=== PATIENT | female | born 1935 | race Two or more races ===

== ENCOUNTER 2019-07-17 17:12 | Inpatient (IN) | payer MEDICAID, MEDICARE ==
[~2019-07-17] VITALS: Ht 167.6 cm; Wt 49.9 kg
[2019-07-17] MEDS ORDERED: SODIUM CHLORIDE 0.9% 1,000 ML IV ONE ×2 (18:11→20:00)
[2019-07-17] MEDS ORDERED: ACETAMINOPHEN 500MG TABLET PO ONE (18:45)
[2019-07-17 19:42] LABS: HEMATOCRIT. 43.2 % (36.0-48.0); HEMOGLOBIN. 14.6 g/dL (12.0-16.0); MEAN CORPUSCULAR HEMOGLOBIN 32.5 pg (28.0-32.0); MEAN CORPUSCULAR VOLUME 96.2 fL (81.0-99.0); RED BLOOD CELL COUNT 4.49 mill/uL (4.2-5.4); RED CELL DISTRIBUTION WIDTH 12.8 % (11.6-14.6)
[2019-07-17] MEDS ORDERED: METRONIDAZOLE 500 MG PREMIX 100 ML IV ONE (19:45)
[2019-07-17] MEDS ORDERED: CEFTRIAXONE 1 G PREMIX 50 ML IV ONE (19:45)
[2019-07-17 19:48] LABS: CHLORIDE 95 mEq/L (98-107)
[2019-07-17 19:57] LABS: MEAN PLATELET VOLUME 7.7 fl (7.4-10.4); PLATELET 136 x1000/uL (130-400)
[2019-07-17 19:59] LABS: PLATELET ESTIMATE NORMAL
[2019-07-17 20:50] LABS: INR 1.3; PROTHROMBIN TIME 13.6 sec (9.6-11.0)
[2019-07-17 20:57] LABS: CLARITY URINE CLOUDY (CLEAR); COLOR URINE ORANGE (YELLOW); KETONES URINE NEGATIVE (NEGATIVE); LEUKOCYTE ESTERASE URINE 2+ (NEGATIVE); NITRITE URINE NEGATIVE (NEGATIVE); OCCULT BLOOD URINE 2+ (NEGATIVE); PROTEIN URINE 2+ (NEGATIVE); SPECIFIC GRAVITY URINE 1.014 (1.005-1.030)
[2019-07-17] MEDS ORDERED: MAGNESIUM/ALUMINUM HYDROXIDE/SIMETHICONE 30ML UDC PO PRN (23:00)
[2019-07-17] MEDS ORDERED: IPRATROPIUM/ALBUTEROL 0.5-3(2.5)MG/3ML NEB NEB PRN (23:00)
[2019-07-17] MEDS ORDERED: KETOROLAC 30MG/ML VIAL IV ONE (23:00)
[2019-07-17] MEDS ORDERED: CLONIDINE 0.1MG TABLET PO PRN (23:00)
[2019-07-17] MEDS ORDERED: HYDROCODONE/ACETAMINOPHEN 5/325MG TABLET PO PRN (23:00)
[2019-07-17] MEDS ORDERED: ACETAMINOPHEN 325MG TABLET PO PRN (23:00)
[2019-07-17] MEDS ORDERED: ONDANSETRON HCL 4MG/2ML INJ IV PRN (23:00)
[2019-07-17] MEDS ORDERED: DOCUSATE SODIUM 100MG CAPSULE PO PRN (23:00)
[2019-07-17 23:06] VITALS: BP 140/51
[2019-07-18] MEDS: SODIUM CHLORIDE 0.9% 1,000 ML IV SCH ×2 (00:02→16:02)
[2019-07-18 02:18] LABS: HEPATITIS B SURFACE ANTIGEN NEGATIVE
[2019-07-18 02:47] LABS: HEPATITIS A AB IGM NEGATIVE (NEGATIVE)
[2019-07-18] MEDS: METRONIDAZOLE 500 MG PREMIX 100 ML IV SCH ×3 (06:28→22:32)
[2019-07-18 06:46] LABS: HEMATOCRIT. 38.3 % (36.0-48.0); HEMOGLOBIN. 13.4 g/dL (12.0-16.0); MEAN CORPUSCULAR HEMOGLOBIN 33.5 pg (28.0-32.0); MEAN PLATELET VOLUME 7.7 fl (7.4-10.4); PLATELET 106 x1000/uL (130-400); RED BLOOD CELL COUNT 3.99 mill/uL (4.2-5.4); RED CELL DISTRIBUTION WIDTH 12.6 % (11.6-14.6)
[2019-07-18 07:05] LABS: CHLORIDE 102 mEq/L (98-107)
[2019-07-18 07:20] LABS: CREATINE KINASE 39 IU/L (26-192); LDL CHOLESTEROL 74 mg/dL (5-100)
[2019-07-18 07:21] LABS: HDL CHOLESTEROL 58 mg/dL (40-59)
[2019-07-18 07:25] LABS: CREATINE KINASE MB FRACTION 2.1 ng/mL (0.5-3.6)
[2019-07-18 08:00] VITALS: BP 144/48
[2019-07-18] MEDS ORDERED: HEPARIN 5000 UNITS/ML VIAL SUBCUT SCH (09:00)
[2019-07-18] MEDS ORDERED: POTASSIUM CHLORIDE 20MEQ TABLET SR PO NR (09:30)
[2019-07-18 12:00] VITALS: BP 113/60
[2019-07-18 12:54] LABS: PLATELET ESTIMATE DECREASED
[2019-07-18 15:56] LABS: CREATINE KINASE 46 IU/L (26-192)
[2019-07-18 15:58] LABS: CREATINE KINASE MB FRACTION 1.5 ng/mL (0.5-3.6)
[2019-07-18 16:00] VITALS: BP 151/56
[2019-07-18 20:00] VITALS: BP 147/62
[2019-07-18] MEDS ORDERED: CEFTRIAXONE 1 G PREMIX 50 ML IV SCH ×2 (21:00→22:00)
[2019-07-19] VITALS (7 sets, daily range): BP systolic 107–158; BP diastolic 54–65
[2019-07-19] MEDS: METRONIDAZOLE 500 MG PREMIX 100 ML IV SCH ×3 (05:09→22:00)
[2019-07-19] MEDS: SODIUM CHLORIDE 0.9% 1,000 ML IV SCH ×2 (07:18→22:42)
[2019-07-19] MEDS ORDERED: POTASSIUM CHLORIDE INJ 40 MEQ in DEXT 5% WATER 500 ML IV NR (11:00)
[2019-07-19] MEDS ORDERED: IOHEXOL-300 50 ML BOTTLE IV ONE (13:14)
[2019-07-19] MEDS ORDERED: LIDOCAINE HCL 1% 20ML VIAL (Pyxis) INJ ONE (13:15)
[2019-07-19] MEDS ORDERED: SODIUM BICARBONATE 4% (2.4MEQ) 5ML VIAL IV ONE (13:16)
[2019-07-19] MEDS ORDERED: FENTANYL CITRATE/PF 50MCG/ML 2ML VIAL ONE (13:45)
[2019-07-19] MEDS: CEFTRIAXONE 1,000 MG in DEXTROSE 5% WATER 50 ML IV SCH (22:00)
[2019-07-20] VITALS: BP 90/40
[2019-07-20 04:00] VITALS: BP 114/45
[2019-07-20] MEDS: METRONIDAZOLE 500 MG PREMIX 100 ML IV SCH ×3 (04:20→22:55)
[2019-07-20 06:23] LABS: HEMATOCRIT. 36.6 % (36.0-48.0); MEAN CORPUSCULAR HEMOGLOBIN 33.7 pg (28.0-32.0); MEAN PLATELET VOLUME 7.9 fl (7.4-10.4); PLATELET 133 x1000/uL (130-400); RED BLOOD CELL COUNT 3.85 mill/uL (4.2-5.4); RED CELL DISTRIBUTION WIDTH 12.6 % (11.6-14.6)
[2019-07-20 06:46] LABS: CHLORIDE 104 mEq/L (98-107)
[2019-07-20 08:00] VITALS: BP 88/33
[2019-07-20 12:00] VITALS: BP 109/36
[2019-07-20] MEDS ORDERED: SULF1TAB48 MT (13:04)
[2019-07-20] MEDS ORDERED: METR500T MT (13:04)
[2019-07-20 13:32] LABS: PLATELET ESTIMATE NORMAL
[2019-07-20] MEDS: SODIUM CHLORIDE 0.9% 1,000 ML IV SCH (14:42)
[2019-07-20 16:00] VITALS: BP 108/46
[2019-07-20 20:00] VITALS: BP 136/62
[2019-07-20] MEDS: CEFTRIAXONE 1,000 MG in DEXTROSE 5% WATER 50 ML IV SCH (22:55)
[2019-07-21 00:30] VITALS: BP 111/55
[2019-07-21 04:29] VITALS: BP 136/54
[2019-07-21] MEDS: SODIUM CHLORIDE 0.9% 1,000 ML IV SCH ×2 (04:53→20:54)
[2019-07-21] MEDS: METRONIDAZOLE 500 MG PREMIX 100 ML IV SCH ×3 (05:15→22:00)
[2019-07-21 08:00] VITALS: BP 140/50
[2019-07-21] MEDS ORDERED: POTASSIUM CHLORIDE 20MEQ/PACKET PO NR ×2 (11:30→21:00)
[2019-07-21 12:00] VITALS: BP 140/41
[2019-07-21 16:00] VITALS: BP 142/44
[2019-07-21] MEDS: CEFTRIAXONE 1,000 MG in DEXTROSE 5% WATER 50 ML IV SCH (22:00)
[2019-07-22] VITALS: BP 153/54
[2019-07-22 04:00] VITALS: BP 133/67
[2019-07-22] MEDS ORDERED: METRONIDAZOLE 500MG TABLET PO SCH (06:00)
[2019-07-22 06:27] LABS: BASOPHILS % 0.3 % (0.0-2.0); EOSINOPHILS % 1.5 % (0.0-5.0); HEMATOCRIT. 40.1 % (36.0-48.0); HEMOGLOBIN. 14.1 g/dL (12.0-16.0); LYMPHOCYTES % 13.1 % (20.0-50.0); MEAN CORPUSCULAR HEMOGLOBIN 33.1 pg (28.0-32.0); MEAN CORPUSCULAR VOLUME 94.1 fL (81.0-99.0); MEAN PLATELET VOLUME 7.6 fl (7.4-10.4); NEUTROPHILS % 75.1 % (40.0-76.0); PLATELET 111 x1000/uL (130-400); RED BLOOD CELL COUNT 4.27 mill/uL (4.2-5.4); RED CELL DISTRIBUTION WIDTH 12.6 % (11.6-14.6)
[2019-07-22 07:08] LABS: CHLORIDE 106 mEq/L (98-107)
[2019-07-22 08:00] VITALS: BP 111/63
[2019-07-22 12:00] VITALS: BP 133/65
[2019-07-22 16:00] VITALS: BP 141/66
== END 2019-07-22 16:16 | disposition home or self-care (01) ==
LOC: ER 17:12 → 6EST 18:40 → ENRESERV 20:28 → CANRESERV 20:28 → ENRESERV 22:09
PROVIDERS: ADMIT Internal Medicine; ATTEND Internal Medicine
PROC: 0F9430Z Drainage of Gallbladder with Drainage Device, Percutaneous Approach (ICD-10-PCS; principal; 2019-07-19)
DX: K80.00 Calculus of gallbladder with acute cholecystitis without obstruction (principal); R65.11 Systemic inflammatory response syndrome (SIRS) of non-infectious origin with acute organ dysfunction; E87.8 Other disorders of electrolyte and fluid balance, not elsewhere classified; K74.60 Unspecified cirrhosis of liver; N39.0 Urinary tract infection, site not specified; R74.0 Nonspecific elevation of levels of transaminase and lactic acid dehydrogenase [LDH]; R54 Age-related physical debility; Z79.899 Other long term (current) drug therapy; Z90.49 Acquired absence of other specified parts of digestive tract; E87.1 Hypo-osmolality and hyponatremia; E44.1 Mild protein-calorie malnutrition
CPT/HCPCS: 36415; 47490; 74176; 74181; 76705; 78227; 80048; 80053; 80061; 80076; 81003; 82550; 82553; 83735; 84132; 84443; 84484; 85025; 86705; 86709; 86803; 87340; 93005; 99285; A9537; C1729; C1769; J0696; J1644; J3010; J3480; J3490; J7030; J7060; Q9967

== ENCOUNTER 2019-08-11 09:49 | Emergency (ER) | payer MEDICAID ==
[~2019-08-11] VITALS: Ht 144.8 cm; Wt 36.0 kg
[~2019-08-11 09:49] MED LIST: METR500T MT; SULF1TAB48 MT
[2019-08-11 12:50] VITALS: BP 164/67
== END 2019-08-11 13:00 | disposition home or self-care (01) ==
LOC: ER 09:49
DX: K91.5 Postcholecystectomy syndrome (principal); Z79.899 Other long term (current) drug therapy
CPT/HCPCS: 99281

== ENCOUNTER 2019-09-10 11:00 | Emergency (ER) | payer MEDICAID ==
[~2019-09-10] VITALS: Ht 147.3 cm; Wt 43.0 kg
[2019-09-10 13:38] VITALS: BP 113/53
== END 2019-09-10 15:00 | disposition home or self-care (01) ==
LOC: ER 11:16
DX: K94.23 Gastrostomy malfunction (principal); Z87.19 Personal history of other diseases of the digestive system
CPT/HCPCS: 99281

== ENCOUNTER 2019-09-13 10:41 | Emergency (ER) | payer MEDICAID ==
[~2019-09-13] VITALS: Ht 147.3 cm; Wt 45.0 kg
[2019-09-13 12:55] LABS: BASOPHILS % 0.6 % (0.0-2.0); CHLORIDE 104 mEq/L (98-107); EOSINOPHILS % 2.2 % (0.0-5.0); HEMATOCRIT. 37.5 % (36.0-48.0); LYMPHOCYTES % 20.6 % (20.0-50.0); MEAN CORPUSCULAR HEMOGLOBIN 33.2 pg (28.0-32.0); MEAN CORPUSCULAR VOLUME 96.2 fL (81.0-99.0); MEAN PLATELET VOLUME 7.6 fl (7.4-10.4); MONOCYTES % 5.4 % (2.0-8.0); NEUTROPHILS % 71.2 % (40.0-76.0); PLATELET 109 x1000/uL (130-400); RED CELL DISTRIBUTION WIDTH 13.9 % (11.6-14.6)
[2019-09-13 13:06] LABS: INR 1.2; PROTHROMBIN TIME 12.2 sec (9.6-11.0)
[2019-09-13 17:04] VITALS: BP 120/65
== END 2019-09-13 17:06 | disposition home or self-care (01) ==
LOC: ER 10:41 → EDBEDREQTM 13:00 → CANBEDREQ 16:10 → ER 17:06
DX: T85.9XXA Unspecified complication of internal prosthetic device, implant and graft, initial encounter (principal); Z90.49 Acquired absence of other specified parts of digestive tract; Z87.81 Personal history of (healed) traumatic fracture; Y83.8 Other surgical procedures as the cause of abnormal reaction of the patient, or of later complication, without mention of misadventure at the time of the procedure; Y92.018 Other place in single-family (private) house as the place of occurrence of the external cause
CPT/HCPCS: 36415; 71045; 76705; 80053; 83605; 84484; 85025; 93005; 99285

== ENCOUNTER 2019-10-07 12:26 | Inpatient (IN) | payer MEDICAID ==
[~2019-10-07] VITALS: Ht 141 cm; Wt 49.6 kg
[2019-10-07 14:36] LABS: BASOPHILS % 0.3 % (0.0-2.0); HEMATOCRIT. 39.7 % (36.0-48.0); HEMOGLOBIN. 13.6 g/dL (12.0-16.0); LYMPHOCYTES % 16.8 % (20.0-50.0); MEAN CORPUSCULAR HEMOGLOBIN 32.6 pg (28.0-32.0); MEAN CORPUSCULAR VOLUME 95.3 fL (81.0-99.0); MEAN PLATELET VOLUME 7.5 fl (7.4-10.4); MONOCYTES % 8.7 % (2.0-8.0); NEUTROPHILS % 74.2 % (40.0-76.0); PLATELET 92 x1000/uL (130-400); RED BLOOD CELL COUNT 4.17 mill/uL (4.2-5.4); RED CELL DISTRIBUTION WIDTH 13.7 % (11.6-14.6)
[2019-10-07 14:46] LABS: CHLORIDE 100 mEq/L (98-107)
[2019-10-07 15:26] LABS: INR 1.1; PROTHROMBIN TIME 11.5 sec (9.6-11.0)
[2019-10-07] MEDS ORDERED: ENOXAPARIN 40MG/0.4ML SYR SUBCUT SCH (16:30)
[2019-10-07] MEDS ORDERED: ONDANSETRON HCL 4MG/2ML INJ IV PRN (16:30)
[2019-10-07] MEDS ORDERED: CLONIDINE 0.1MG TABLET PO PRN (16:30)
[2019-10-07] MEDS ORDERED: ALBUTEROL 6.7GM HFA INHALER ORI PRN (16:30)
[2019-10-07] MEDS ORDERED: DIPHENHYDRAMINE 50MG/ML VIAL IV PRN (16:30)
[2019-10-07 16:52] LABS: CLARITY URINE CLOUDY (CLEAR); COLOR URINE YELLOW (YELLOW); KETONES URINE NEGATIVE (NEGATIVE); LEUKOCYTE ESTERASE URINE 3+ (NEGATIVE); NITRITE URINE POSITIVE (NEGATIVE); OCCULT BLOOD URINE TRACE (NEGATIVE); PH URINE 6.5 (4.5-8.0); PROTEIN URINE NEGATIVE (NEGATIVE); SPECIFIC GRAVITY URINE 1.011 (1.005-1.030)
[2019-10-07 17:13] LABS: C REACTIVE PROTEIN CARDIAC 9.3 mg/L (0.00-3.00); PHOSPHORUS 3.2 mg/dL (2.5-4.9)
[2019-10-07 19:09] LABS: BG BASE EXCESS 0.7 mmol/L (-2.0-2.0); BG CARBOXYHEMOGLOBIN 0.2 % (0.5-1.5); BG DEOXYHEMOGLOBIN 2.4 % (0.0-5.0); BG FRACTION INSPIRED OXYGEN 28; BG HCO3 ACT 24.4 mmol/L (22.0-26.0); BG METHEMOGLOBIN 0.3 % (0.0-1.5); BG OXYGEN SATURATION 97.6 % (92.0-98.5); BG OXYHEMOGLOBIN 97.1 % (94.0-97.0); BG PCO2 36.3 mmHg (35.0-45.0); BG PH 7.445 (7.350-7.450); BG SAMPLE SITE RIGHT BRACHIAL; BG TOTAL HEMOGLOBIN 14.2 g/dL (12.0-18.0); BG VENT MODE NASAL CANNULA
[2019-10-07] MEDS ORDERED: CEFTRIAXONE 1 G PREMIX 50 ML IV ONE (19:30)
[2019-10-07 23:00] VITALS: BP 146/63
[2019-10-08] VITALS: BP 146/63
[2019-10-08] MEDS ORDERED: DEXTROSE 50% WATER 50ML SYRINGE IV PRN (01:00)
[2019-10-08 04:00] VITALS: BP 155/89
[2019-10-08 06:30] LABS: BASOPHILS % 0.3 % (0.0-2.0); EOSINOPHILS % 0.2 % (0.0-5.0); HEMATOCRIT. 38.8 % (36.0-48.0); HEMOGLOBIN. 13.2 g/dL (12.0-16.0); LYMPHOCYTES % 21.7 % (20.0-50.0); MEAN CORPUSCULAR HEMOGLOBIN 32.2 pg (28.0-32.0); MEAN CORPUSCULAR VOLUME 94.5 fL (81.0-99.0); MEAN PLATELET VOLUME 7.5 fl (7.4-10.4); MONOCYTES % 7.7 % (2.0-8.0); NEUTROPHILS % 70.1 % (40.0-76.0); PLATELET 86 x1000/uL (130-400); RED BLOOD CELL COUNT 4.11 mill/uL (4.2-5.4); RED CELL DISTRIBUTION WIDTH 13.2 % (11.6-14.6)
[2019-10-08] MEDS: BLOOD SUGAR DIAGNOSTIC STRIP TEST SCH ×4 (06:37→21:07)
[2019-10-08 06:49] LABS: CHLORIDE 102 mEq/L (98-107)
[2019-10-08 07:11] LABS: LDL CHOLESTEROL 97 mg/dL (5-100)
[2019-10-08 07:13] LABS: HDL CHOLESTEROL 44 mg/dL (40-59)
[2019-10-08 08:00] VITALS: BP 107/54
[2019-10-08] MEDS: INSULIN LISPRO 100 UNITS/ML SUBCUT SCH ×4 (08:10→21:00)
[2019-10-08] MEDS ORDERED: ENOXAPARIN 30MG/0.3ML SYR SUBCUT SCH (09:00)
[2019-10-08 09:20] LABS: BG BASE EXCESS -1.7 mmol/L (-2.0-2.0); BG CARBOXYHEMOGLOBIN 0.3 % (0.5-1.5); BG DEOXYHEMOGLOBIN 2.2 % (0.0-5.0); BG FRACTION INSPIRED OXYGEN 21; BG HCO3 ACT 20.7 mmol/L (22.0-26.0); BG OXYGEN SATURATION 97.8 % (92.0-98.5); BG OXYHEMOGLOBIN 97.5 % (94.0-97.0); BG PCO2 29.3 mmHg (35.0-45.0); BG PH 7.468 (7.350-7.450); BG PO2 96.8 mmHg (75.0-100.0); BG SAMPLE SITE RIGHT RADIAL; BG VENT MODE ROOM AIR
[2019-10-08 12:00] VITALS: BP 146/81
[2019-10-08] MEDS: AZITHROMYCIN 500 MG in DEXT 5% WATER 250 ML IV SCH (13:54)
[2019-10-08 16:00] VITALS: BP 99/61
[2019-10-08 20:00] VITALS: BP 121/48
[2019-10-08] MEDS: CEFTRIAXONE 1,000 MG in DEXTROSE 5% WATER 50 ML IV SCH (20:49)
[2019-10-09] VITALS: BP 123/52
[2019-10-09 04:00] VITALS: BP 119/53
[2019-10-09] MEDS: INSULIN LISPRO 100 UNITS/ML SUBCUT SCH ×4 (07:32→21:30)
[2019-10-09] MEDS: BLOOD SUGAR DIAGNOSTIC STRIP TEST SCH ×4 (07:33→20:43)
[2019-10-09 09:41] VITALS: BP 125/55
[2019-10-09] MEDS: AZITHROMYCIN 500 MG in DEXT 5% WATER 250 ML IV SCH (11:31)
[2019-10-09 12:35] VITALS: BP 122/59
[2019-10-09] MEDS: NYSTATIN POWDER 15GM TOP SCH ×2 (14:13→22:21)
[2019-10-09 16:54] VITALS: BP 128/63
[2019-10-09] MEDS: ALBUTEROL 6.7GM HFA INHALER ORI SCH (17:12)
[2019-10-09 20:00] VITALS: BP 127/58
[2019-10-09] MEDS: CEFTRIAXONE 1,000 MG in DEXTROSE 5% WATER 50 ML IV SCH (20:47)
[2019-10-09] MEDS: CEFEPIME 1,000 MG in DEXTROSE 5% WATER 50 ML IV SCH (22:21)
[2019-10-10] VITALS: BP 122/65
[2019-10-10] MEDS: ALBUTEROL 6.7GM HFA INHALER ORI SCH ×4 (01:21→17:00)
[2019-10-10 04:00] VITALS: BP 121/59
[2019-10-10] MEDS: BLOOD SUGAR DIAGNOSTIC STRIP TEST SCH ×4 (07:32→20:53)
[2019-10-10] MEDS: INSULIN LISPRO 100 UNITS/ML SUBCUT SCH ×4 (07:32→20:53)
[2019-10-10 08:00] VITALS: BP 110/59
[2019-10-10] MEDS: NYSTATIN POWDER 15GM TOP SCH ×2 (08:54→20:23)
[2019-10-10] MEDS: CEFEPIME 1,000 MG in DEXTROSE 5% WATER 50 ML IV SCH ×2 (08:54→20:23)
[2019-10-10] MEDS: AZITHROMYCIN 500 MG in DEXT 5% WATER 250 ML IV SCH (11:33)
[2019-10-10 12:00] VITALS: BP 99/43
[2019-10-10 16:00] VITALS: BP 100/50
[2019-10-10 20:43] VITALS: BP 112/86
[2019-10-11] VITALS (8 sets, daily range): BP systolic 91–135; BP diastolic 34–78
[2019-10-11] MEDS: ALBUTEROL 6.7GM HFA INHALER ORI SCH ×4 (01:45→18:13)
[2019-10-11] MEDS: BLOOD SUGAR DIAGNOSTIC STRIP TEST SCH ×4 (07:31→21:00)
[2019-10-11] MEDS: INSULIN LISPRO 100 UNITS/ML SUBCUT SCH ×4 (08:10→20:59)
[2019-10-11] MEDS: CEFEPIME 1,000 MG in DEXTROSE 5% WATER 50 ML IV SCH (09:04)
[2019-10-11] MEDS: NYSTATIN POWDER 15GM TOP SCH ×2 (09:04→20:59)
[2019-10-11] MEDS: AZITHROMYCIN 500 MG in DEXT 5% WATER 250 ML IV SCH (11:02)
[2019-10-11] MEDS ORDERED: MYCOC15 TP (15:48)
[2019-10-11] MEDS ORDERED: AMOX-424 MT (15:54)
== END 2019-10-11 21:30 | disposition home or self-care (01) | DRG 720 ==
LOC: ER 12:58 → 7WST 15:20 → EDBEDREQ 15:26 → ENRESERV 20:34
PROVIDERS: ADMIT Internal Medicine; ATTEND Internal Medicine
DX: A41.89 Other specified sepsis (principal); U07.1 COVID-19; J96.01 Acute respiratory failure with hypoxia; E87.2 Acidosis; M48.54XA Collapsed vertebra, not elsewhere classified, thoracic region, initial encounter for fracture; M48.56XA Collapsed vertebra, not elsewhere classified, lumbar region, initial encounter for fracture; M10.9 Gout, unspecified; N39.0 Urinary tract infection, site not specified; D72.810 Lymphocytopenia; G93.40 Encephalopathy, unspecified; F03.90 Unspecified dementia, unspecified severity, without behavioral disturbance, psychotic disturbance, mood disturbance, and anxiety; J12.89 Other viral pneumonia; R19.7 Diarrhea, unspecified; J20.9 Acute bronchitis, unspecified; K82.8 Other specified diseases of gallbladder; A41.51 Sepsis due to Escherichia coli [E. coli]; K80.00 Calculus of gallbladder with acute cholecystitis without obstruction; D69.6 Thrombocytopenia, unspecified; B97.89 Other viral agents as the cause of diseases classified elsewhere; Z16.12 Extended spectrum beta lactamase (ESBL) resistance; Z87.81 Personal history of (healed) traumatic fracture; Z79.899 Other long term (current) drug therapy; I77.811 Abdominal aortic ectasia
CPT/HCPCS: 36415; 36600; 71045; 74176; 80053; 80061; 81003; 82375; 82728; 82805; 82962; 83605; 83615; 83735; 83880; 84100; 84145; 84443; 84484; 85025; 86141; 87077; 87186; 87635; 93005; 96365; 99291; J0456; J0692; J0696; J1815; J7060

== ENCOUNTER 2019-10-16 11:41 | Inpatient (IN) | payer MEDICAID ==
[~2019-10-16] VITALS: Ht 139.7 cm; Wt 39.5 kg
[~2019-10-16 11:41] MED LIST changes: +AMOX-424 MT; -METR500T MT; +MYCOC15 TP; -SULF1TAB48 MT
[2019-10-16] MEDS ORDERED: PIPERACILLIN/TAZ 3.375G PREMIX 50 ML IV ONE (12:30)
[2019-10-16] MEDS ORDERED: VANCOMYCIN 1 G PREMIX 200 ML IV ONE (12:30)
[2019-10-16 12:42] LABS: HEMATOCRIT. 39.8 % (36.0-48.0); HEMOGLOBIN. 13.9 g/dL (12.0-16.0); MEAN CORPUSCULAR HEMOGLOBIN 32.2 pg (28.0-32.0); MEAN CORPUSCULAR VOLUME 92.2 fL (81.0-99.0); PLATELET 123 x1000/uL (130-400); RED BLOOD CELL COUNT 4.31 mill/uL (4.2-5.4); RED CELL DISTRIBUTION WIDTH 13.7 % (11.6-14.6)
[2019-10-16 12:47] LABS: CHLORIDE 102 mEq/L (98-107)
[2019-10-16 13:00] LABS: BG BASE EXCESS -1.1 mmol/L (-2.0-2.0); BG CARBOXYHEMOGLOBIN 0.2 % (0.5-1.5); BG DEOXYHEMOGLOBIN 3.3 % (0.0-5.0); BG FRACTION INSPIRED OXYGEN 44; BG METHEMOGLOBIN 0.2 % (0.0-1.5); BG OXYGEN SATURATION 96.7 % (92.0-98.5); BG OXYHEMOGLOBIN 96.3 % (94.0-97.0); BG PCO2 28.1 mmHg (35.0-45.0); BG PH 7.491 (7.350-7.450); BG PO2 87.9 mmHg (75.0-100.0); BG SAMPLE SITE RIGHT RADIAL; BG TOTAL HEMOGLOBIN 13.7 g/dL (12.0-18.0); BG VENT MODE NASAL CANNULA
[2019-10-16 13:06] LABS: CREATINE KINASE 25 IU/L (26-192)
[2019-10-16 13:20] LABS: D-DIMER 3.29 mg/L FEU (<0.50); INR 1.3; PROTHROMBIN TIME 13.1 sec (9.6-11.0)
[2019-10-16 13:49] LABS: PLATELET ESTIMATE SLIGHTLY DECREASED
[2019-10-16] MEDS ORDERED: ACETAMINOPHEN 325MG TABLET PO PRN (15:30)
[2019-10-16] MEDS ORDERED: ONDANSETRON HCL 4MG/2ML INJ IV PRN (15:30)
[2019-10-16 15:59] LABS: CLARITY URINE CLOUDY (CLEAR); COLOR URINE DK YELLOW (YELLOW); KETONES URINE TRACE (NEGATIVE); LEUKOCYTE ESTERASE URINE 2+ (NEGATIVE); NITRITE URINE NEGATIVE (NEGATIVE); OCCULT BLOOD URINE 1+ (NEGATIVE); PROTEIN URINE 2+ (NEGATIVE); SPECIFIC GRAVITY URINE 1.026 (1.005-1.030)
[2019-10-16] MEDS ORDERED: CEFTRIAXONE 1 G PREMIX 50 ML IV SCH (16:00)
[2019-10-16] MEDS ORDERED: BENZONATATE 100MG CAPSULE PO PRN (16:15)
[2019-10-16] MEDS: ENOXAPARIN 30MG/0.3ML SYR SUBCUT SCH (16:42)
[2019-10-16] MEDS: AZITHROMYCIN 500 MG TABLET PO SCH (16:42)
[2019-10-16 21:15] VITALS: BP 127/63
[2019-10-16] MEDS ORDERED: TRAZ-251 PO (23:09)
[2019-10-16] MEDS ORDERED: AMIT25TA9 PO (23:09)
[2019-10-16] MEDS ORDERED: MEMA10TA55 PO (23:09)
[2019-10-17] VITALS: BP 123/60
[2019-10-17 04:00] VITALS: BP 124/68
[2019-10-17] MEDS: ALBUTEROL 6.7GM HFA INHALER ORI SCH ×4 (05:02→18:36)
[2019-10-17 08:00] VITALS: BP 110/58
[2019-10-17] MEDS: ENOXAPARIN 30MG/0.3ML SYR SUBCUT SCH (08:37)
[2019-10-17] MEDS: AZITHROMYCIN 500 MG TABLET PO SCH (08:37)
[2019-10-17 12:00] VITALS: BP 120/53
[2019-10-17] MEDS: DEXAMETHASONE 2MG TABLET PO SCH (15:51)
[2019-10-17] MEDS: CEFTRIAXONE 1,000 MG in DEXTROSE 5% WATER 50 ML IV SCH (15:51)
[2019-10-17 16:00] VITALS: BP 127/61
[2019-10-17 20:00] VITALS: BP 137/75
[2019-10-18] VITALS (7 sets, daily range): BP systolic 90–139; BP diastolic 44–74
[2019-10-18] MEDS: ALBUTEROL 6.7GM HFA INHALER ORI SCH ×4 (00:11→19:02)
[2019-10-18] MEDS: AZITHROMYCIN 500 MG TABLET PO SCH (08:31)
[2019-10-18] MEDS: ENOXAPARIN 30MG/0.3ML SYR SUBCUT SCH (08:31)
[2019-10-18] MEDS: DEXAMETHASONE 2MG TABLET PO SCH ×3 (08:31→18:19)
[2019-10-18] MEDS: FUROSEMIDE 40MG/4ML VIAL IVP SCH (12:56)
[2019-10-18 13:05] LABS: BG BASE EXCESS 1.1 mmol/L (-2.0-2.0); BG CARBOXYHEMOGLOBIN 0.2 % (0.5-1.5); BG DEOXYHEMOGLOBIN 8.2 % (0.0-5.0); BG FRACTION INSPIRED OXYGEN 100; BG HCO3 ACT 24.2 mmol/L (22.0-26.0); BG METHEMOGLOBIN 0.2 % (0.0-1.5); BG OXYGEN SATURATION 91.8 % (92.0-98.5); BG OXYHEMOGLOBIN 91.4 % (94.0-97.0); BG PCO2 33.5 mmHg (35.0-45.0); BG PH 7.476 (7.350-7.450); BG PO2 61.2 mmHg (75.0-100.0); BG SAMPLE SITE RIGHT RADIAL; BG TOTAL HEMOGLOBIN 13.2 g/dL (12.0-18.0); BG VENT MODE MASK - NRB
[2019-10-18] MEDS ORDERED: REMDESIVIR 200 MG in SODIUM CHLORIDE 0.9% 250 ML IV SCH (14:00)
[2019-10-18] MEDS: CEFTRIAXONE 1,000 MG in DEXTROSE 5% WATER 50 ML IV SCH (16:13)
[2019-10-19] VITALS (33 sets, daily range): BP systolic 57–136; BP diastolic 36–83
[2019-10-19] MEDS: DEXAMETHASONE 2MG TABLET PO SCH ×3 (00:28→12:00)
[2019-10-19] MEDS: ALBUTEROL 6.7GM HFA INHALER ORI SCH ×2 (00:28→06:35)
[2019-10-19 06:28] LABS: CHLORIDE 107 mEq/L (98-107)
[2019-10-19] MEDS: AZITHROMYCIN 500 MG TABLET PO SCH (09:00)
[2019-10-19] MEDS: FUROSEMIDE 40MG/4ML VIAL IVP SCH (09:00)
[2019-10-19] MEDS: ENOXAPARIN 30MG/0.3ML SYR SUBCUT SCH (09:00)
[2019-10-19] MEDS ORDERED: MIDAZOLAM HCL 100 MG in DEXT 5% WATER 80 ML IV PRN (09:15)
[2019-10-19] MEDS ORDERED: FENTANYL CITRATE/PF 1,000 MCG in SODIUM CHLORIDE 0.9% 80 ML IV PRN (09:15)
[2019-10-19] MEDS ORDERED: NOREPINEPHRINE 8 MG in DEXT 5% WATER 242 ML IV PRN (09:15)
[2019-10-19 09:45] LABS: BG BASE EXCESS -19.6 mmol/L (-2.0-2.0); BG CARBOXYHEMOGLOBIN 0.2 % (0.5-1.5); BG DEOXYHEMOGLOBIN 0.9 % (0.0-5.0); BG HCO3 ACT 11.1 mmol/L (22.0-26.0); BG METHEMOGLOBIN 0.4 % (0.0-1.5); BG OXYGEN SATURATION 99.1 % (92.0-98.5); BG OXYHEMOGLOBIN 98.5 % (94.0-97.0); BG PCO2 44.3 mmHg (35.0-45.0); BG PH 7.015 (7.350-7.450); BG PO2 299.1 mmHg (75.0-100.0); BG SAMPLE SITE RIGHT BRACHIAL; BG TIDAL VOLUME(mL) 400 mL; BG TOTAL HEMOGLOBIN 13.6 g/dL (12.0-18.0); BG VENT MODE VENT - A/C; BG VENT RATE 16 set
[2019-10-19] MEDS ORDERED: SODIUM BICARBONATE 8.4% 1 MEQ/ML 50ML SYR IV NR (09:45)
[2019-10-19] MEDS ORDERED: MORPHINE SULFATE 4 MG/ML CPJ (NOT FOR IM USE) IV NR (10:00)
[2019-10-19] MEDS ORDERED: LORAZEPAM 2MG/ML CPJ IV NR (10:00)
[2019-10-19] MEDS ORDERED: REMDESIVIR 100 MG in SODIUM CHLORIDE 0.9% 250 ML IV SCH (14:00)
[2019-10-19] MEDS ORDERED: DEXAMETHASONE 10 MG/ML VIAL IV SCH (15:00)
[2019-10-19 16:24] LABS: BG BASE EXCESS -5.5 mmol/L (-2.0-2.0); BG CARBOXYHEMOGLOBIN 0.3 % (0.5-1.5); BG DEOXYHEMOGLOBIN 3.3 % (0.0-5.0); BG FRACTION INSPIRED OXYGEN 80; BG METHEMOGLOBIN 0.2 % (0.0-1.5); BG OXYGEN SATURATION 96.7 % (92.0-98.5); BG OXYHEMOGLOBIN 96.2 % (94.0-97.0); BG PCO2 29.4 mmHg (35.0-45.0); BG PH 7.404 (7.350-7.450); BG PO2 96.2 mmHg (75.0-100.0); BG SAMPLE SITE RIGHT BRACHIAL; BG TIDAL VOLUME(mL) 400 mL; BG TOTAL HEMOGLOBIN 12.8 g/dL (12.0-18.0); BG VENT MODE PRVC; BG VENT RATE 20 set
[2019-10-19] MEDS: CEFTRIAXONE 1,000 MG in DEXTROSE 5% WATER 50 ML IV SCH (16:52)
[2019-10-19] MEDS ORDERED: AZITHROMYCIN 250 MG in DEXT 5% WATER 250 ML IV SCH (17:00)
[2019-10-19] MEDS: IPRATROPIUM/ALBUTEROL 0.5-3(2.5)MG/3ML NEB HHN SCH (20:20)
[2019-10-19 23:08] LABS: HEMOGLOBIN. 15.8 g/dL (12.0-16.0); MEAN CORPUSCULAR HEMOGLOBIN 30.6 pg (28.0-32.0); MEAN CORPUSCULAR VOLUME 100.9 fL (81.0-99.0); MEAN PLATELET VOLUME 6.2 fl (7.4-10.4); RED BLOOD CELL COUNT 5.15 mill/uL (4.2-5.4); RED CELL DISTRIBUTION WIDTH 16.5 % (11.6-14.6)
[2019-10-19 23:12] LABS: PLATELET 19 x1000/uL (130-400)
[2019-10-19 23:39] LABS: PLATELET ESTIMATE MARKEDLY DECREASED
[2019-10-20] MEDS: IPRATROPIUM/ALBUTEROL 0.5-3(2.5)MG/3ML NEB HHN SCH (00:10)
[2019-10-20 00:30] VITALS: BP 110/55
[2019-10-20 00:48] VITALS: BP 111/38
[2019-10-20 01:00] VITALS: BP 111/38
[2019-10-20 01:15] VITALS: BP 106/40
== END 2019-10-20 03:11 | disposition expired | DRG 720 ==
LOC: ER 11:41 → 7WST 13:41 → EDBEDREQ 13:45 → EDBEDREQSVC 13:45 → EDBEDREQTM 13:45 → EDBEDREQ 14:00 → ENRESERV 20:32 → MICUSO 10-19 12:56
PROVIDERS: ADMIT Internal Medicine; ATTEND Internal Medicine
PROC: XW033E5 Introduction of Remdesivir Anti-infective into Peripheral Vein, Percutaneous Approach, New Technology Group 5 (ICD-10-PCS; 2019-10-18)
PROC: 5A1935Z Respiratory Ventilation, Less than 24 Consecutive Hours (ICD-10-PCS; principal; 2019-10-19)
PROC: 0BH17EZ Insertion of Endotracheal Airway into Trachea, Via Natural or Artificial Opening (ICD-10-PCS; 2019-10-19)
DX: A41.89 Other specified sepsis (principal); U07.1 COVID-19; E43 Unspecified severe protein-calorie malnutrition; J12.89 Other viral pneumonia; E87.1 Hypo-osmolality and hyponatremia; E87.2 Acidosis; D68.59 Other primary thrombophilia; F03.90 Unspecified dementia, unspecified severity, without behavioral disturbance, psychotic disturbance, mood disturbance, and anxiety; I77.810 Thoracic aortic ectasia; J84.112 Idiopathic pulmonary fibrosis; Z66 Do not resuscitate; D69.6 Thrombocytopenia, unspecified; D72.810 Lymphocytopenia; J96.01 Acute respiratory failure with hypoxia; Z68.20 Body mass index [BMI] 20.0-20.9, adult; Z87.81 Personal history of (healed) traumatic fracture; Z79.2 Long term (current) use of antibiotics; Z79.899 Other long term (current) drug therapy
CPT/HCPCS: 36415; 36600; 71045; 80053; 81003; 82375; 82550; 82728; 82805; 82962; 83605; 83615; 83880; 84145; 84484; 85025; 85379; 85384; 86140; 86850; 86900; 93005; 94002; 94640; 99285; J0456; J0696; J1100; J1650; J1940; J2060; J2250; J2270; J2543; J3010; J3370; J3490; J7050; J7060; J8540; Q9957